=== PATIENT | female | born 1995 | race African-American/Black ===

== ENCOUNTER 2017-01-01 20:23 | Emergency (ER) | payer OTHER ==
[~2017-01-01] VITALS: Ht 162.6 cm; Wt 53.3 kg
[2017-01-01 20:54] LABS: HEMATOCRIT 40.9 % (36.0-46.0); MCH 30.1 PG (29.0-34.0); MCHC 33.3 G/DL (30.0-36.0); MCV 90.5 FL (83-99); MEAN PLAT.VOLUME 10.6 uM^3 (9.5-12.4); PLATELET COUNT 216 K/uL (156-360); RBC DIS.WIDTH-CV 13.4 % (11.8-14.6); RBC DIS.WIDTH-SD 45.1 % (39-53); RED BLOOD COUNT 4.52 M/uL (3.80-5.20); WHITE BLOOD COUNT 7.6 K/uL (4.1-10.2)
[2017-01-01 21:04] LABS: CHLORIDE 108 mEq/L (99-109); POTASSIUM 3.8 mEq/L (3.7-5.4); SODIUM 142 mEq/L (136-147)
[2017-01-01 21:06] LABS: GLUCOSE 106 mg/dL (70-99)
[2017-01-01 21:08] LABS: ANION GAP 11 MEQ/L (2-14); TOTAL BILIRUBIN 0.9 mg/dL (0.0-1.0)
[2017-01-01 21:10] LABS: ALKALINE PHOSPHATASE 32 IU/L (3-129); GFR ESTIMATE (CALCULATED) > 59 mL/min/
[2017-01-01 21:11] LABS: UREA NITROGEN (BUN) 14 mg/dL (9-23)
[2017-01-01 21:16] LABS: ADD MIUA? YES; BILIRUBIN NEGATIVE; BLOOD NEGATIVE; GLUCOSE (STRIP) NEGATIVE; KETONES NEGATIVE; LEUKOCYTES TRACE; NITRITE NEGATIVE; PROTEIN (STRIP) 30; SPECIFIC GRAVITY 1.033 (1.000-1.030); UROBILINOGEN 0.2 MG/DL (0.2-1.0)
[2017-01-01 21:21] LABS: QUANTITATIVE HCG < 4.0 MIU/ML
[2017-01-01 21:22] LABS: COLOR DK YELLOW ((YELLOW))
[2017-01-01 21:32] LABS: EPITHELIAL CELLS 3+ /HPF; RED BLOOD CELLS 0-5 /HPF (0-5); WHITE BLOOD CELLS 0-5 /HPF (0-5)
[2017-01-01 21:33] LABS: BACTERIA 1+ /HPF; MUCUS 2+ /LPF; UCUL ADDED? NO
[2017-01-01 23:09] VITALS: BP 97/57
== END 2017-01-01 23:11 | disposition home or self-care (01) ==
LOC: EME 20:23
DX: R10.30 Lower abdominal pain, unspecified (principal); Z87.440 Personal history of urinary (tract) infections
CPT/HCPCS: 76856; 80053; 81003; 84702; 85027; 99281; 99284; J1885; J2405; J7030

== ENCOUNTER 2017-01-13 17:24 | Emergency (ER) | payer OTHER ==
[~2017-01-13] VITALS: Ht 162.6 cm; Wt 54.2 kg
[2017-01-13] MEDS ORDERED: LIDOCAINE20 MG/1 M5 PO (19:23)
[2017-01-13 19:34] VITALS: BP 115/72
== END 2017-01-13 19:34 | disposition home or self-care (01) ==
LOC: EME 17:24
DX: R13.10 Dysphagia, unspecified (principal); F17.200 Nicotine dependence, unspecified, uncomplicated
CPT/HCPCS: 70360; 99281; 99284